=== PATIENT | female | born 1965 | race African-American/Black ===

== ENCOUNTER 2021-03-26 19:23 | Emergency (ER) | payer BC ==
[~2021-03-26] VITALS: Ht 177.8 cm; Wt 70.3 kg
--- NOTE | 2021-03-26 19:44 | NUR ---
MD Bell in room to do MSE.
[2021-03-26] MEDS ORDERED: HYDROMORPHONE 1 MG/1 ML DISP.SYRIN IM ONE (20:15)
[2021-03-26] MEDS ORDERED: KETOROLAC TROMETHAMINE 60 MG INJ IM ONE ×2 (20:15→20:22)
[2021-03-26] MEDS ORDERED: ONDANSETRON HCL 4 MG TABLET PO ONE (20:15)
[2021-03-26] MEDS ORDERED: ONDANSETRON ODT 4 MG TAB.RAPDIS ONE (20:22)
[2021-03-26] MEDS ORDERED: HYDROMORPHONE 2 MG/1 ML DISP.SYRIN ONE (20:22)
--- NOTE | 2021-03-26 20:23 | NUR ---
Patient taken out for CT scan by technical training specialist.
[2021-03-26] MEDS ORDERED: OXYC-128 PO (20:29)
[2021-03-26 21:42] VITALS: BP 130/82
--- NOTE | 2021-03-26 21:42 | NUR ---
Patient discharged to home in stable condition. Written and verbal after care instructions given. Patient verbalizes understanding of instructions. Stressed follow up or return to ER for worsening s/s. Patient requested to be wheelchaired to her sister's car for her ride, V/S stable, received paper Rx, and left with all personal belongings.
== END 2021-03-26 21:42 | disposition home or self-care (01) ==
LOC: ER 19:26
DX: M54.42 Lumbago with sciatica, left side (principal)
CPT/HCPCS: 72131; 96372 ×2; 99284; J1170; J1885; A4663; Q0162